=== PATIENT | male | born 1960 | race Caucasian/White ===

== ENCOUNTER 2020-02-28 08:26 | Outpatient (CLI) | payer BC ==
--- NOTE | 2020-02-28 09:44 | MMO ---
Bilateral MAMMO Bilat Diag [facility]. CLINICAL HISTORY: Patient is 60 years old and is seen for diagnostic exam and palpable abnormality in the left breast. The patient has the following family history of breast cancer: father, at age 78, malignant (generic). The patient has a history of melanoma in 2020 and Prostate more than 10 years ago. VIEWS: The views performed were: bilateral craniocaudal with tomosynthesis; bilateral mediolateral oblique with tomosynthesis; and bilateral lateromedial with tomosynthesis. FILMS COMPARED: The present examination has been compared to a prior imaging study performed at [facility] on 02/28/2020. This study has been interpreted with the assistance of computer-aided detection. MAMMOGRAM FINDINGS: The breasts are almost entirely fat. There is a round mass measuring 5 millimeters with circumscribed margins seen in the upper-inner region of the left breast. In the right breast, there are no suspicious masses, calcifications or areas of architectural distortion. IMPRESSION: MASS IN THE LEFT BREAST IS PROBABLY BENIGN. FOLLOW-UP IN 6 MONTHS IS RECOMMENDED. ULTRASOUND PROBABLY SOLID / COMPLEX SEBACEOUS CYST THE RESULTS OF THIS EXAM WERE SENT TO THE PATIENT. ACR BI-RADS Category 3 - Probably benign finding - short interval follow-up suggested. [facility] will notify the patient of the need for additional imaging services. MAMMOGRAPHY NOTE: 1. A negative mammogram report should not delay a biopsy if a dominant of clinically suspicious mass is present. 2. Approximately 10% to 15% of breast cancers are not detected by mammography. 3. Adenosis and dense breasts may obscure an underlying neoplasm. Reported by: STACI AUGUSTINE MD Electonically Signed: [id number]
--- NOTE | 2020-02-28 10:34 | ULT ---
LEFT BREAST ULTRASOUND: HISTORY: The patient presents with a palpable finding in the 10 o'clock position of the left breast. Diagnost ic mammogram confirmed a 5 mm mass in the upper inner left breast. FINDINGS: In the 10 'o'clock position 8 cm from the nipple, there is a circumscribed 0.5 cm diameter solid-appe aring somewhat centrally more echogenic somewhat more peripherally hypoechoic. This is very superfic ial and abuts the undersurface of the skin. There is a suggestion of a small hypoechoic track extend ing from this mass to near the skin surface. I would favor this representing a sebaceous cyst. IMPRESSION: Heterogeneously echogenic 0.5 cm very superficial mass abutting the undersurface of the skin at 10 o' clock 8 cm from the nipple corresponding to the palpable finding. I would favor this representing a sebaceous cyst. BIRADS category 3, probably benign findings. Six-month followup imaging should be considered. Upon discussing this with the patient, he indicated that he would prefer to have this excised which would certainly be appropriate in this setting. If it is not excised, 6-month followup imaging is recommended. POS: OFF
== END 2020-02-28 08:27 | disposition home or self-care (01) ==
LOC: BICULT 08:26
PROVIDERS: ATTEND Plastic Surgery
DX: N63.20 Unspecified lump in the left breast, unspecified quadrant (principal)
CPT/HCPCS: 77066; G0279

== ENCOUNTER 2020-04-02 07:18 | Outpatient (CLI) | payer BC, OTHER ==
[2020-04-02 10:29] LABS: #Basophils 0.1 thou/uL (0.0-0.2); #Eosinphils 0.1 thou/uL (0.0-0.7); #Lymphocytes 2.5 thou/uL (1.20-3.40); #Monocytes 0.5 thou/uL (0.11-0.59); #Neutrophils 2.4 thou/uL (1.40-6.50); %Eosinophils 2.5 % (0.0-10.0); %Monocytes 9.2 % (0.0-10.0); %Neutrophils 42.3 % (42.0-75.0); Hemoglobin 15.1 g/dL (14.0-18.0); Mean Corpuscular HGB CONC 32.7 g/dL (32.0-36.0); Mean Corpuscular Hemoglobin 28.5 pg (27.0-31.0); Mean Corpuscular Volume 87.1 fL (78.0-98.0); Platelet Count 203 thou/uL (130-400); RBC Distribution Width 11.5 % (11.5-14.5); White Blood Cell (WBC) Count 5.7 thou/uL (4.8-10.8)
[2020-04-02 10:48] LABS: Anion Gap 13 mmol/L (10-20); BUN (Urea Nitrogen) 15 mg/dL (8.4-25.7); Calc. Creatinine Clearance 0 mL/min (70-130); Calcium 9.2 mg/dL (7.8-10.44); Carbon Dioxide 26 mmol/L (23-31); Chloride 105 mmol/L (98-107); Estimated GFR-MDRD 86; Glucose 84 mg/dL (80-115); Potassium 4.7 mmol/L (3.5-5.1); Sodium 139 mmol/L (136-145)
[2020-04-02 17:44] LABS: SARS-CoV-2 MS2 Positive; SARS-CoV-2 N Gene Negative; SARS-CoV-2 S Gene Negative; SARS-CoV-2 by NAA Not Detected (NotDetected); SARS-CoV-2 orf1ab Negative
== END 2020-04-02 07:19 | disposition home or self-care (01) ==
LOC: LABBT 07:18
PROVIDERS: ATTEND Surgery
DX: Z01.812 Encounter for preprocedural laboratory examination (principal); Z20.828 Contact with and (suspected) exposure to other viral communicable diseases; D12.1 Benign neoplasm of appendix
CPT/HCPCS: 80048; 85025; 87635; U0003

== ENCOUNTER 2020-04-06 05:57 | Day surgery (SDC) | payer BC ==
[2020-04-02 14:39] VITALS: BMI 25.0
[2020-04-06] MEDS ORDERED: Lidocaine 1% w/Epinephrine 1:100K 20 ML VIAL ONE (06:26)
[2020-04-06] MEDS ORDERED: Bupivacaine 0.25% HCL 30 ML VIAL ONE (06:26)
[2020-04-06] MEDS ORDERED: cefOXitin Sodium/Dextrose 2 GM/50 ML BAG ONE (06:28)
[2020-04-06] MEDS ORDERED: Fentanyl 100 MCG/2 ML VIAL ONE ×3 (06:56→08:32)
[2020-04-06] MEDS ORDERED: Midazolam HCl 2 mg/2 ml Vial ONE (07:14)
[2020-04-06] MEDS ORDERED: PROPOFOL 200 MG/20 ML VIAL ONE (09:43)
[2020-04-06] MEDS ORDERED: Ondansetron PF 4 MG/2 ML Vial ONE (09:43)
[2020-04-06] MEDS ORDERED: Ketorolac Tromethamine 30 MG/ML VIAL ONE (09:43)
[2020-04-06] MEDS ORDERED: EPHEDRINE 25 MG/5 ML SYRINGE ONE (09:43)
[2020-04-06] MEDS ORDERED: Glycopyrrolate 0.2 MG/ML 5 ML SYRINGE ONE (09:43)
[2020-04-06] MEDS ORDERED: Lidocaine 1% PF 5 ML VIAL ONE (09:43)
[2020-04-06] MEDS ORDERED: Rocuronium Bromide 10 MG/ML (10ML VIAL) ONE (09:43)
[2020-04-06] MEDS ORDERED: Dexamethasone 20 MG/5 ML VIAL ONE (09:43)
[2020-04-06] MEDS ORDERED: HYDROcodone/Acetaminophen 5/325 mg Tablet ONE (09:57)
--- NOTE | 2020-04-06 15:31 | OP ---
DATE OF PROCEDURE: 04/06/2020 PREOPERATIVE DIAGNOSIS: Villous adenoma of appendiceal orifice. PROCEDURE PERFORMED: Laparoscopic appendectomy and partial cecectomy. INDICATIONS: This is a 60-year-old male, who underwent a routine colonoscopy, was found to have an abnormal growth right at the appendiceal orifice. Biopsies were an adenomatous polyp. FINDINGS: Removed the distal 1 cm of the cecum with the entire appendix, sent to Pathology for further analysis. DESCRIPTION OF PROCEDURE: After informed consent was obtained, the patient was taken to the operating room and given general endotracheal anesthesia, placed in supine position. Abdomen was prepped and draped in usual fashion. Local anesthesia was infiltrated subcutaneously and deep. A subumbilical incision was performed, subcu divided sharply. The fascia grasped and two stay sutures of 0 Vicryl placed on either side of midline. Midline incised. Digital palpation revealed no local adhesions. A blunt 12 mm trocar inserted. Pneumoperitoneum was created to a pressure of 15 mmHg. A 0-degree laparoscope inserted under direct vision. Two 5-mm ports were placed, one suprapubic, one right lateral abdomen. There were some adhesions along the abdominal wall. These were taken down to expose the cecum. The cecum was mobilized to include the appendix. The mesoappendix divided with the LigaSure. The ileocecal valve was found. I was able to take the stapler and go just distal to the ileocecal valve to remove about a centimeter of the cecum to include the appendix. This was placed in an Endosac, removed from the abdomen in an Endosac. Hemostasis was assured. Trocars and retractors removed. The fascia was closed with 0 Vicryl suture. The skin was closed with interrupted 4-0 Rapide. Dermabond applied. The patient tolerated the procedure well, transferred to Recovery in good condition. Sponge and needle count verified correct x2. Job ID: [id number]
--- NOTE | 2020-04-07 16:08 | EKG ---
Test Reason : PREOP Blood Pressure : / mmHG Vent. Rate : 059 BPM Atrial Rate : 059 BPM P-R Int : 152 ms QRS Dur : 106 ms QT Int : 434 ms P-R-T Axes : -50 078 061 degrees QTc Int : 429 ms Unusual P axis, possible ectopic atrial bradycardia Non-specific intra-ventricular conduction delay ST elevation, consider early repolarization Abnormal ECG No previous ECGs available Confirmed by CHRISTIE STEWART ([id number]) on 04/07/2020 4:08:03 PM Referred By: WATSON Confirmed By:CHRISTIE STEWART
== END 2020-04-06 13:11 | disposition home or self-care (01) ==
LOC: SDC 05:57
PROVIDERS: ATTEND Surgery
PROC: 0DTJ4ZZ Resection of Appendix, Percutaneous Endoscopic Approach (ICD-10-PCS; principal; 2020-04-06)
DX: D12.1 Benign neoplasm of appendix (principal)
CPT/HCPCS: 88304; 93005; 93010; J0690; J0694; J1100; J1885; J2250; J2405; J2704; J3010; S0020